=== PATIENT | female | born 1950 | race African-American/Black ===

== ENCOUNTER 2018-12-03 15:06 | Emergency (ER) | payer SELFPAY ==
[~2018-12-03] VITALS: Ht 165.1 cm; Wt 75.0 kg
[2018-12-03] MEDS ORDERED: TRAMADOL 50MG TABLET PO ONE (15:30)
[2018-12-03] MEDS ORDERED: CLONIDINE 0.1MG TABLET PO ONE ×2 (15:30→17:00)
[2018-12-03 18:56] VITALS: BP 175/88
== END 2018-12-03 19:13 | disposition home or self-care (01) ==
LOC: ER 15:06
DX: S09.8XXA Other specified injuries of head, initial encounter (principal); S00.81XA Abrasion of other part of head, initial encounter; R68.84 Jaw pain; E11.9 Type 2 diabetes mellitus without complications; E78.00 Pure hypercholesterolemia, unspecified; I10 Essential (primary) hypertension; I25.2 Old myocardial infarction; I48.91 Unspecified atrial fibrillation; Z79.01 Long term (current) use of anticoagulants; Z98.61 Coronary angioplasty status; Z98.890 Other specified postprocedural states; W01.0XXA Fall on same level from slipping, tripping and stumbling without subsequent striking against object, initial encounter; Y93.89 Activity, other specified; Y92.511 Restaurant or cafe as the place of occurrence of the external cause
CPT/HCPCS: 70486; 93005; 99284